=== PATIENT | female | born 1995 | race African-American/Black ===

== ENCOUNTER 2019-10-06 11:04 | Emergency (ER) | payer OTHER, SELFPAY ==
--- NOTE | 2019-10-06 11:18 | ED.GENADULT ---
HPI - General Adult General Chief complaint: Urogenital-Female Stated complaint: abdominal pain/ Time Seen by Provider: 10/06/19 11:34 Source: patient Mode of arrival: ambulatory Limitations: no limitations History of Present Illness HPI narrative: 23-year-old female patient presents to the [facility] with complaints of upper and lower abdominal pain as well as vaginal discharge for the past 3 to 4 days. Patient is currently 31 weeks . Patient states she was treated for UTI on September 23 with ampicillin. Patient states she is was also treated with Augmentin and Flagyl in early June due to some vaginal discharge and a UTI. Patient states that she has had vaginal discharge throughout this entire but now it is thicker and does have some itchiness denies any burning or pain with urination. Denies any concerns for STDs. Patient states she has not followed up with her OB since being treated for the UTI. Patient states she has been taking Tylenol for the abdominal pain at times. Patient is currently 2 para 1. Patient states that she did not have any any issues with her last except for that she delivered late. Related Data Home Medications Medication Instructions Recorded Confirmed PNV cmb#[id number]-ferrous fumarate-FA 1 tablet PO DAILY 05/06/19 06/26/19 [] albuterol sulfate 2 puff INHALATION QID PRN 06/26/19 06/26/19 ondansetron HCl [Zofran] 4 mg PO Q6H PRN 06/26/19 06/26/19 Allergies Allergy/AdvReac Type Severity Reaction Status Date / Time shrimp Allergy Unknown Anaphylactic Verified 06/26/19 12:58 Shock Cat Dander Allergy Intermediate FACIAL/EYE/THROAT Uncoded 06/26/19 12:58 ITCHING Review of Systems Review of Systems: Narrative: CONSTITUTIONAL: Denies fever, chills, or sweats. EYES: Denies visual changes, redness, or discharge. ENT: Denies rhinorrhea, congestion, sore throat, or otalgia. CARDIOVASCULAR: Denies chest pain, palpitations, or edema. RESPIRATORY: Denies cough or dyspnea. GASTROINTESTINAL:positive abdominal pain,denies nausea, vomiting, or diarrhea. GENITOURINARY: Denies dysuria or hematuria.positive vaginal discharge with itching. SKIN: Denies rash or itching. MUSCULOSKELETAL: Denies back pain, joint pain, or myalgia. NEUROLOGIC: Denies headache, numbness, or weakness. PSYCHIATRIC: Denies anxiety or depression. [facility] Past Medical History Medical History Asthma Comments At the time of my signature I agree with nursing past medical history, surgical, social, and family history. There is no relevant family history pertinent to the presenting complaint. Exam Narrative: Exam Narrative: GENERAL: Well-appearing, well-nourished, and in no acute distress. HEAD: Normocephalic, atraumatic. EYES: PERRLA and EOMI. ENT: Nares clear, no rhinorrhea or epistaxis. Mucous membranes moist. NECK: Supple. No lymphadenopathy CHEST: Clear to auscultation. No respiratory distress. HEART: Regular rate and rhythm. No murmur heard. Normal peripheral pulses. ABDOMEN: Soft, nontender, nondistended, normal active bowel sounds. : deffered due to . EXTREMITIES: Normal range of motion. No edema. SKIN: Warm, dry, no rash. NEURO: No focal deficits. Alert and oriented x3. Course Vital Signs Vital signs: Vital Signs Temperature 37.1 C 10/06/19 11:21 Pulse Rate 136 H 10/06/19 11:21 Respiratory Rate 16 10/06/19 11:21 Blood Pressure 121/55 L 10/06/19 11:21 Pulse Oximetry 100 10/06/19 11:21 Temperature 37.1 C 10/06/19 11:21 Pulse Rate 136 H 10/06/19 11:21 Respiratory Rate 16 10/06/19 11:21 Blood Pressure 121/55 L 10/06/19 11:21 Pulse Oximetry 100 10/06/19 11:21 Vital signs reviewed. Medical Decision Making Differential Diagnosis Differential Diagnosis: Differential diagnosis: Uncomplicated lower UTI, uncomplicated UTI, pyelonephritis, yeast infection, BV Notify patient
[2019-10-06 11:21] VITALS: BP 121/55; PULSE 136; RESP 16; TEMP 37.1; O2SAT 100
== END 2019-10-06 11:56 | disposition home or self-care (01) ==
PROVIDERS: Emergency Provider Nurse Practitioner Family
DX: O23.13 Infections of bladder in pregnancy, third trimester (principal); O99.513 Diseases of the respiratory system complicating pregnancy, third trimester; J45.909 Unspecified asthma, uncomplicated; Z3A.31 31 weeks gestation of pregnancy
CPT/HCPCS: 81003; 87086; 87088; 99213; G0463

== ENCOUNTER 2023-03-25 09:05 | Emergency (ER) | payer OTHER, SELFPAY ==
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
[2023-03-25 09:14] VITALS: BP 122/63; PULSE 68; RESP 16; TEMP 36.4; O2SAT 96
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
[2023-03-25] MEDS: IBUPROFEN 400 MG TABLET 800 MG PO (10:27)
[2023-03-25] MEDS: ACETAMINOPHEN 500 MG TABLET 1000 MG PO (10:27)
== END 2023-03-25 11:19 | disposition home or self-care (01) ==
PROVIDERS: Emergency Provider Physician Assistant
DX: S13.4XXA Sprain of ligaments of cervical spine, initial encounter (principal); J45.909 Unspecified asthma, uncomplicated; V89.2XXA Person injured in unspecified motor-vehicle accident, traffic, initial encounter
CPT/HCPCS: 72125; 72128; 73030; 99284; A9270